=== PATIENT | female | born 1950 | race Caucasian/White ===

== ENCOUNTER 2017-10-06 14:09 | Inpatient (IN) | payer MEDICARE, OTHER ==
[2017-10-06] MEDS ORDERED: SOD CHLORIDE 0.9% 1,000 ML IV (15:16)
[2017-10-06] MEDS ORDERED: MAGNESIUM HYDROXIDE 30ML CUP PO (15:30)
[2017-10-06] MEDS ORDERED: morphine 2 MG INJ IV (15:30)
[2017-10-06] MEDS ORDERED: ONDANSETRON 4 MG INJ IV (15:30)
[2017-10-06] MEDS ORDERED: METHADONE (1 MG/ML 5 ML PO UD SYG) PO (15:30)
[2017-10-06] MEDS ORDERED: VANCOMYCIN IV PER PHARMACY XX (15:30)
[2017-10-06] MEDS ORDERED: ZOLPIDEM 5 MG TAB PO (15:30)
[2017-10-06] MEDS: HYDROCODONE/APAP (5/325) TAB PO (16:20)
[2017-10-06] MEDS: DOCUSATE SODIUM 100 MG CAP PO (16:21)
[2017-10-06] MEDS: FAMOTIDINE 20 MG TAB PO ×2 (16:21→21:20)
[2017-10-06] MEDS: LORAZEPAM 2 MG INJ IV (16:23)
[2017-10-06] MEDS: FUROSEMIDE 20 MG INJ IV (16:23)
[2017-10-06] MEDS: VANCOMYCIN 1 GM 250 ML IVPB (16:24)
[2017-10-06 16:48] LABS: BLOOD UREA NITROGEN 20 mg/dl (7-20)
[2017-10-06 16:48] LABS: CREATININE 0.77 mg/dl (0.44-1.00)
[2017-10-06] MEDS: LEVOFLOXACIN 500MG/D5W (PMX) 100 ML IVPB (18:42)
[2017-10-06] MEDS: ALBUTEROL/IPRATROPIUM (NEB) 3 ML AMP HHN (20:50)
[2017-10-06] MEDS: METHADONE (1 MG/ML 5 ML PO UD SYG) PO (21:21)
[2017-10-07] MEDS: HYDROCODONE/APAP (5/325) TAB PO ×3 (01:00→17:06)
[2017-10-07] MEDS: ALBUTEROL/IPRATROPIUM (NEB) 3 ML AMP HHN ×5 (01:00→21:00)
[2017-10-07] MEDS: DOCUSATE SODIUM 100 MG CAP PO ×2 (03:58→15:35)
[2017-10-07] MEDS: traMADol 50 MG TAB PO ×2 (06:17→20:57)
[2017-10-07] MEDS: METHADONE (1 MG/ML 5 ML PO UD SYG) PO ×2 (09:05→20:57)
[2017-10-07] MEDS: TIOTROPIUM 18 MCG CAPSULE INHA DEV INH (09:05)
[2017-10-07] MEDS: ENOXAPARIN 30 MG/0.3 ML SYG SC (09:07)
[2017-10-07] MEDS: FAMOTIDINE 20 MG TAB PO ×2 (09:07→20:56)
[2017-10-07] MEDS: VANCOMYCIN 500MG/NS (PMX) 100 ML IVPB (13:39)
[2017-10-07 14:48] LABS: ADD MAN DIFF? NO
[2017-10-07 14:54] LABS: BASOPHILS % 0.4 % (0.0-2.0); EOSINOPHILS % 0.2 % (0.0-7.0); HEMATOCRIT 35.4 % (37.0-47.0); HEMOGLOBIN 11.5 g/dl (12.0-16.0); LYMPHOCYTES # 0.8 10^3/ul (0.8-2.9); LYMPHOCYTES % 17.1 % (15.0-51.0); MEAN CORPUSCULAR HEMOGLOBIN 30.4 pg (29.0-33.0); MEAN CORPUSCULAR HGB CONC 32.5 g/dl (32.0-37.0); MEAN CORPUSCULAR VOLUME 93.7 fl (82.0-101.0); MEAN PLATELET VOLUME 9.5 fl (7.4-10.4); MONOCYTE # 0.4 10^3/ul (0.3-0.9); MONOCYTES % 8.5 % (0.0-11.0); NEUTROPHIL # 3.5 10^3/ul (1.6-7.5); PLATELET COUNT 193 10^3/UL (140-415); RED BLOOD COUNT 3.78 10^6/ul (4.20-5.40); RED CELL DISTRIBUTION WIDTH 15.4 % (11.5-14.5)
[2017-10-07 14:54] LABS: WHITE BLOOD COUNT 4.8 10^3/ul (4.8-10.8)
[2017-10-07 15:15] LABS: ANION GAP 13 (8-16); BLOOD UREA NITROGEN 23 mg/dl (7-20); CALCIUM 8.3 mg/dl (8.4-10.2); CARBON DIOXIDE 31 mmol/L (21-31); CHLORIDE 96 mmol/L (97-110); CHOL/HDL RATIO 3.9 RATIO; CHOLESTEROL 162 mg/dl (100-200); CREATININE 1.07 mg/dl (0.44-1.00); GLUCOSE 92 mg/dl (70-220); HDL CHOLESTEROL 41 mg/dl (33-92); LDL CHOLESTEROL,CALCULATED 95 mg/dl; MAGNESIUM 1.8 mg/dl (1.7-2.5); PHOSPHORUS 3.4 mg/dl (2.5-4.9); POTASSIUM 3.8 mmol/L (3.5-5.1); SODIUM 136 mmol/L (135-144); TRIGLYCERIDES 132 mg/dl (0-149)
[2017-10-07] MEDS ORDERED: VANCOMYCIN 750 MG in DEXTROSE 5% 150 ML IVPB (16:00)
[2017-10-07 16:15] LABS: HEMOGLOBIN A1C 5.3 % (0-5.9)
[2017-10-07 16:29] LABS: ADD UMIC YES; UR ASCORBIC ACID NEGATIVE (NEGATIVE); UR BACTERIA FEW /HPF (NONE SEEN); UR BILIRUBIN (Dip) NEGATIVE (NEGATIVE); UR BLOOD (Dip) NEGATIVE (NEGATIVE); UR CLARITY SLIGHTLY CLOUDY (CLEAR); UR COLOR YELLOW (YELLOW); UR GLUCOSE (Dip) NEGATIVE (NEGATIVE); UR KETONES (Dip) NEGATIVE (NEGATIVE); UR LEUKOCYTE ESTERASE (Dip) NEGATIVE Leu/ul (NEGATIVE); UR MUCUS FEW /HPF (NONE SEEN); UR NITRITE (Dip) NEGATIVE (NEGATIVE); UR RBC 1 /HPF (0-5); UR SPECIFIC GRAVITY (Dip) 1.021 (1.003-1.030); UR SQUAMOUS EPITHELIAL CELL MANY /HPF (FEW); UR TOTAL PROTEIN (Dip) 1+ mg/dl (NEGATIVE); UR UROBILINOGEN (Dip) NEGATIVE (NEGATIVE); UR WBC 2 /HPF (0-5)
[2017-10-07 16:38] LABS: CANNABINOIDS Positive (NEGATIVE)
[2017-10-07 16:56] LABS: AMPHETAMINE/METHAMPHETAMINE POSITIVE (NEGATIVE); BARBITURATES Negative (NEGATIVE); BENZODIAZEPINES Negative (NEGATIVE); COCAINE Negative (NEGATIVE); OPIATES Positive (NEGATIVE)
[2017-10-07] MEDS: LEVOFLOXACIN 500MG/D5W (PMX) 100 ML IVPB (17:02)
[2017-10-08] MEDS: ALBUTEROL/IPRATROPIUM (NEB) 3 ML AMP HHN ×5 (01:00→17:14)
[2017-10-08] MEDS: HYDROCODONE/APAP (5/325) TAB PO ×2 (03:13→12:54)
[2017-10-08] MEDS: DOCUSATE SODIUM 100 MG CAP PO ×2 (03:15→16:24)
[2017-10-08 06:43] LABS: ADD MAN DIFF? NO
[2017-10-08 06:54] LABS: WHITE BLOOD COUNT 5.3 10^3/ul (4.8-10.8)
[2017-10-08 06:54] LABS: BASOPHILS % 0.6 % (0.0-2.0); EOSINOPHILS # 0.1 10^3/ul (0.0-0.5); EOSINOPHILS % 0.9 % (0.0-7.0); HEMATOCRIT 36.4 % (37.0-47.0); HEMOGLOBIN 11.7 g/dl (12.0-16.0); LYMPHOCYTES # 1.1 10^3/ul (0.8-2.9); LYMPHOCYTES % 21.6 % (15.0-51.0); MEAN CORPUSCULAR HEMOGLOBIN 30.5 pg (29.0-33.0); MEAN CORPUSCULAR HGB CONC 32.1 g/dl (32.0-37.0); MEAN CORPUSCULAR VOLUME 94.8 fl (82.0-101.0); MEAN PLATELET VOLUME 9.7 fl (7.4-10.4); MONOCYTE # 0.4 10^3/ul (0.3-0.9); MONOCYTES % 8.2 % (0.0-11.0); NEUTROPHIL # 3.6 10^3/ul (1.6-7.5); NEUTROPHILS % 67.6 % (39.0-77.0); PLATELET COUNT 188 10^3/UL (140-415); RED BLOOD COUNT 3.84 10^6/ul (4.20-5.40); RED CELL DISTRIBUTION WIDTH 15.5 % (11.5-14.5)
[2017-10-08 07:33] LABS: ANION GAP 12 (8-16); BLOOD UREA NITROGEN 22 mg/dl (7-20); CALCIUM 8.1 mg/dl (8.4-10.2); CARBON DIOXIDE 31 mmol/L (21-31); CHLORIDE 98 mmol/L (97-110); CREATININE 1.06 mg/dl (0.44-1.00); GLUCOSE 78 mg/dl (70-220); POTASSIUM 4.1 mmol/L (3.5-5.1); SODIUM 137 mmol/L (135-144)
[2017-10-08] MEDS: FAMOTIDINE 20 MG TAB PO ×2 (08:58→20:45)
[2017-10-08] MEDS: METHADONE (1 MG/ML 5 ML PO UD SYG) PO ×2 (08:58→20:45)
[2017-10-08] MEDS: ENOXAPARIN 30 MG/0.3 ML SYG SC (09:09)
[2017-10-08] MEDS: TIOTROPIUM 18 MCG CAPSULE INHA DEV INH (09:10)
[2017-10-08 12:27] LABS: VANCOMYCIN,TROUGH 7.6 ug/ml (10.0-20.0)
[2017-10-08] MEDS: VANCOMYCIN 500MG/NS (PMX) 100 ML IVPB ×2 (12:43)
[2017-10-08] MEDS: LEVOFLOXACIN 500MG/D5W (PMX) 100 ML IVPB (16:24)
[2017-10-08] MEDS: LORAZEPAM 1 MG TAB PO (17:50)
[2017-10-08] MEDS: VANCOMYCIN 1 GM 250 ML IVPB (20:45)
[2017-10-09] MEDS: LORAZEPAM 1 MG TAB PO ×2 (00:36→13:39)
[2017-10-09] MEDS: DOCUSATE SODIUM 100 MG CAP PO (03:30)
[2017-10-09] MEDS: HYDROCODONE/APAP (5/325) TAB PO (06:37)
[2017-10-09] MEDS: LEVOTHYROXINE 100 MCG TAB PO (06:37)
[2017-10-09] MEDS: LEVOFLOXACIN 500 MG TAB PO (06:37)
[2017-10-09 06:51] LABS: CREATININE 0.88 mg/dl (0.44-1.00)
[2017-10-09 06:51] LABS: BLOOD UREA NITROGEN 17 mg/dl (7-20)
[2017-10-09] MEDS: METHADONE (1 MG/ML 5 ML PO UD SYG) PO (09:05)
[2017-10-09] MEDS: FAMOTIDINE 20 MG TAB PO (09:05)
[2017-10-09] MEDS: VANCOMYCIN 1 GM 250 ML IVPB (09:06)
[2017-10-09] MEDS: TIOTROPIUM 18 MCG CAPSULE INHA DEV INH (09:06)
[2017-10-09] MEDS: ENOXAPARIN 30 MG/0.3 ML SYG SC (09:08)
== END 2017-10-09 16:00 | disposition home or self-care (01) | DRG 194 ==
LOC: MS2 14:09
PROVIDERS: Internal Medicine
DX: J18.9 Pneumonia, unspecified organism (principal); J44.0 Chronic obstructive pulmonary disease with (acute) lower respiratory infection; J44.1 Chronic obstructive pulmonary disease with (acute) exacerbation; L03.317 Cellulitis of buttock; E03.9 Hypothyroidism, unspecified; F11.10 Opioid abuse, uncomplicated; F17.200 Nicotine dependence, unspecified, uncomplicated; R03.0 Elevated blood-pressure reading, without diagnosis of hypertension; R06.89 Other abnormalities of breathing; R52 Pain, unspecified
CPT/HCPCS: 71250; 76536; 80048; 80061; 80202; 80307; 81001; 82565; 83036; 83735; 84100; 84443; 84520; 85025; 87040; 87070; 87081; 87086; 93306; 94640; 94664; J1940